=== PATIENT | female | born 1985 | race Caucasian/White ===

== ENCOUNTER 2017-04-15 13:17 | Emergency (ER) | payer OTHER ==
[~2017-04-15] VITALS: Ht 167.6 cm; Wt 82.0 kg
[2017-04-15 13:36] VITALS: BP 123/70; PULSE 87; RESP 16; O2SAT 98
[2017-04-15] MEDS ORDERED: MORPHINE SULFATE 4 MG/ML INJ IV PUSH ONE (13:45)
--- NOTE | 2017-04-15 14:18 | RADRPT ---
EXAM DATE/TIME: 04/15/2017 13:41 [facility] COMPARISON: No previous studies available for comparison. INDICATIONS : Right pelvic pain. MEDICAL HISTORY : Abdominal pain. SURGICAL HISTORY : Tubal ligation. Breast augmentation. ENCOUNTER: Initial ACUITY: 1 day PAIN SCORE: 0/10 LOCATION: Right pelvis MEASUREMENTS: UTERUS: 9.4 x 6.9 x 4.1 cm ENDOMETRIAL STRIPE: 9 mm RIGHT OVARY: 3.3 x 2.0 x 1.7 cm LEFT OVARY: 4.2 x 3.5 x 1.9 cm FINDINGS: UTERUS: The myometrium has homogeneous echotexture without mass. RIGHT OVARY: Ovary contains no mass or significant cystic lesion. LEFT OVARY: Ovary contains no mass or significant cystic lesion. MISCELLANEOUS: Trace free fluid. CONCLUSION: 1. Trace free fluid. Pelvic ultrasound otherwise unremarkable. Steven Gonzalez MD on April 15, 2017 at 14:15 Board Certified Radiologist. This report was verified electronically.
--- NOTE | 2017-04-15 14:39 | PD ---
HPI Chief Complaint: Abdominal Pain Time Seen by Provider: 14:55 Travel History International Travel<30 days: No Contact w/Intl Traveler<30days: No Traveled to known affect area: No History of Present Illness HPI 31- year old female presents to the ED as a transfer from [place]. The patient is complaining of constant RLQ abdominal pain since 2:30 this morning. She describes the pain as cramping with occasional stabbing. She reports different positions make the pain better, and movement make the pain worse. She states currently the pain is a 8/10. The pain occasionally radiates to her back. She reports some nausea, but denies any vomiting, diarrhea, or constipation. She reports the only abdominal surgery she had is tubal ligation in 2011. She was seen at and had blood work and imaging that was essentially unremarkable. she had a pelvic exam to did not show any sign of infection. cat scan was negative. she was sent here mainly to an ultrasound to rule out torsion. dr. glass gave report to dr. condon who gave report to me. PFSH Past Medical History Medical History: Denies Significant Hx Diminished Hearing: No Influenza Vaccination: Yes ?: Not Tubal Ligation: Yes Past Surgical History Other Surgery: Yes (breast augmentation) Social History Alcohol Use: Yes ("socially") Tobacco Use: Yes ("occasionally") Substance Use: No Allergies-Medications (Allergen,Severity, Reaction): Coded Allergies: Sulfa (Verified Allergy, Severe, 04/15/17) Reported Meds & Prescriptions Reported Meds & Active Scripts Active Diclofenac Sodium DR (Diclofenac Sodium) 75 Mg Tabdr 75 Mg PO BID PRN Lortab (Hydrocodone-Acetaminophen) 5-325 Mg Tab 1 Tab PO Q6H PRN Review of Systems General / Constitutional: No: Fever, Chills, Weight Gain, Weight Loss, Other Eyes: No: Diploplia, Blurred Vision, Photophobia, Drainage, Redness, Foreign Body Sensation, Pain, Tearing, Blind Spots, Visual changes, Blindness, Other HENT: No: Headaches, Vertigo, Lightheadedness, Sore Throat, Rhinitis, Rhinorrhea, Congestion, Nosebleed, Neck Stiffness, Neck Pain, Masses, Gingival Bleeding, Dental Difficulties, Ear Discharge, Earache, Other Cardiovascular: No: Chest Pain or Discomfort, Palpitations, Irregular Rhythm, Tachycardia, Diaphoresis, Syncope, Dyspnea on exertion, Varicosities, Edema, Cyanosis, Varicosities, Phlebitis, Claudication, Other Respiratory: No: Cough, Shortness of Breath, Wheezing, Sneezing, Orthopnea, Hemoptysis, Stridor, Night Sweats, Pleuritic Pain, Other Gastrointestinal: Positive: Nausea, Abdominal Pain, No: Vomiting, Diarrhea, Hematemesis, Hematochezia, Constipation, Changes in Bowel Habits, Indigestion, Dysphagia, Loss of Appetite, Other Genitourinary: No: Urgency, Frequency, Dysuria, Nocturia, Hematuria, Decreased Urinary Output, Oliguria, Hesitancy, Dribbling, Incontinence, Pelvic Pain, Flank Pain, Dyspareunia, Discharge, Dysmenorrhea, Menorrhagia, Metorrhagia, Vaginal Bleeding, Other Musculoskeletal: No: Myalgias, Arthralgias, Limited ROM, Weakness, Cramping, Edema, Pain, Atrophy, Other Skin: No Rash, No Itching, No Dryness, No Lumps, No Hives, No Change in Pigmentation, No Change in nails, No Alopecia, No Lesions, No Breast Lumps, No Breast Tenderness, No Breast Swelling, No Other Neurologic: No: Weakness, Dizziness, Syncope, Focal Abnormalities, Coordination Problem, Tremor, Ataxia, Headache, Change in Mentation, Slurred Speech, Paresthesia, Incontinence, Seizures, Sensory Disturbance, Other Physical Exam Narrative GENERAL: SKIN: Warm and dry. HEAD: Atraumatic. Normocephalic. EYES: Pupils equal and round. No scleral icterus. No injection or drainage. ENT: No nasal bleeding or discharge. Mucous membranes pink and moist. NECK: Trachea midline. No JVD. CARDIOVASCULAR: Regular rate and rhythm. RESPIRATORY: No accessory muscle use. Clear to auscultation. Breath sounds equal bilaterally. GASTROINTESTINAL: Tender to palpation in RLQ. Abdomen soft, nondistended. Hepatic and splenic margins not palpable. Pelvic exam: Please refer to previous providers note. MUSCULOSKELETAL: Extremities without clubbing, cyanosis, or edema. No obvious deformities. NEUROLOGICAL: Awake and alert. No obvious cranial nerve deficits. Motor grossly within normal limits. Five out of 5 muscle strength in the arms and legs. Normal speech. PSYCHIATRIC: Appropriate mood and affect; insight and judgment normal. Data Data Last Documented VS Vital Signs Date Time Temp Pulse Resp B/P Pulse Ox O2 Delivery O2 Flow Rate FiO2 8//17 13:36 87 16 123/70 98 Orders Us Pelvis Comp Miner Operator/Non-Preg (04/15/17 ) Morphine Inj (Morphine Inj) (04/15/17 13:45) MDM Medical Decision Making Medical Screen Exam Complete: Yes Emergency Medical Condition: Yes Medical Record Reviewed: Yes Interpretation(s) Last Impressions Pelvis Ultrasound 04/15/17 0000 Signed Impressions: Service Date/Time: Saturday, April 15, 2017 13:41 - CONCLUSION: 1. Trace free fluid. Pelvic ultrasound otherwise unremarkable. Steven Gonzalez MD Differential Diagnosis Pelvic pain versus ovarian torsion versus ovarian cyst versus right lower quadrant pain Narrative Course 31-year-old female that presents to the ED for evaluation of right lower quadrant pain. Patient was properly examined and was found to have signs and symptoms consistent with pelvic pain. Patient already had a workup before being transferred to this facility. She is here only for an ultrasound. Ultrasound showed no sign of acute disease. Labs and imaging were essentially unremarkable. Patient was reassured. At this time I recommend trial pain medication. Close follow with PCP. See ED for worsening symptoms. Case was discussed in my attending Dr. Tariq who agrees with this plan. Diagnosis Primary Impression: Pelvic pain in female Patient Instructions: General Instructions, Narcotic given in the ED Additional Instructions: Take medications as prescribed. Follow-up with PCP. See ED for any worsening symptoms. Do not drink or drive while taking pain medication. Apply ice or heat as needed for pain Med/Other Pt SpecificInfo: Prescription(s) given Scripts Diclofenac Sodium DR 75 Mg Tabdr75 Mg PO BID PRN (PAIN SCALE 1 TO 10) #20 TAB Prov:Ravin Tariq MD 04/15/17 Hydrocodone-Acetaminophen (Lortab)5-325 Mg Tab1 Tab PO Q6H PRN (PAIN) #14 TAB Prov:Ravni Tariq MD 04/15/17 Disposition: 01 DISCHARGE HOME Condition: Stable Eleno Quijano Apr 15, 2017 14:39
[2017-04-15] MEDS ORDERED: HYDR-3533 PO (15:07)
[2017-04-15] MEDS ORDERED: DICL75TA PO (15:07)
== END 2017-04-15 18:17 | disposition home or self-care (01) ==
LOC: NEPC 13:17
DX: R10.2 Pelvic and perineal pain (principal); R11.0 Nausea; Z72.0 Tobacco use
CPT/HCPCS: 74177; 76856; 80053; 81001; 83690; 84702; 85025; 87210; 87491; 87591; 96361; 96374; 96375; 96376; 99285; J1885; J2270; J2405; J7030; Q9967